=== PATIENT | male | born 1970 | race Caucasian/White ===

== ENCOUNTER 2016-12-02 21:19 | Emergency (ER) | payer BC, OTHER ==
[2016-12-02] MEDS ORDERED: Lidocaine 1% 20 ML MDV ONE (21:52)
[2016-12-02] MEDS ORDERED: Adacel (T-DAP) 0.5 ML VIAL ONE (22:17)
== END 2016-12-02 22:40 | disposition home or self-care (01) ==
LOC: NAV ERS 21:19
DX: S61.012A Laceration without foreign body of left thumb without damage to nail, initial encounter (principal); I10 Essential (primary) hypertension; E66.9 Obesity, unspecified; Z79.899 Other long term (current) drug therapy; W26.0XXA Contact with knife, initial encounter
CPT/HCPCS: 12001; 90471; 90715; J2001